=== PATIENT | male | born 1975 | race Caucasian/White ===

== ENCOUNTER 2016-11-12 02:55 | Emergency (ER) | payer OTHER ==
[~2016-11-12] VITALS: Ht 190.5 cm; Wt 145.0 kg
[~2016-11-12 02:55] MED LIST: HYDR-762 PO; IBUP-1542 PO; METH500T PO; OMEP20CA9 PO
[2016-11-12 03:05] VITALS: Ht 190.5 cm; Wt 145.0 kg
[2016-11-12] MEDS ORDERED: LISI10TA2 PO (04:26)
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
--- NOTE | 2016-11-12 04:43 | RADRPT ---
PROCEDURE: CT Lumbar Spine without contrast. CLINICAL INDICATION: Back pain. TECHNIQUE: The study was performed on a [employer] 64-slice VCT scanner. Contiguous axial images using 2.5 mm slice thickness were obtained without contrast. Sagittal and coronal reformati ons were created from the raw axial data. The images were reviewed on a PACS workstation. Exam CTD/vol = 38.48 mGy. Total exam DLP = 1008.35 mGy-cm. COMPARISON: None. FINDINGS: There is a mild compression deformity of the L1 vertebral body with up to 20% loss in vertebral body height. Lumbar vertebral alignment remains within normal limits. There are small marginal osteoph ytes at multiple levels. There are defects of bilateral pars interarticularis of L5. At T12-L1, there is mild loss of disk height and a mild diffuse disk osteophyte complex resulting in mild central canal stenosis. There is no neural foraminal stones. At L1-L2, there is mild loss of disk height and a mild diffuse disk osteophyte complex resulting in mild central canal stenosis. There is no neural foraminal stenosis. At L2-L3, there is mild loss of disk height and a mild diffuse disk osteophyte complex resulting in mild central canal stenosis. There is moderate bilateral neural foraminal stenosis. At L3-L4, the disk height is within normal limits. There is no central canal stenosis. There is mi ld bilateral neural foraminal stenosis. At L4-L5, the disk height is within normal limits. There is no central canal stenosis. There is mo derate bilateral neural foraminal stenosis. At L5-S1, the disk height is within normal limits. There is no central canal stenosis. There is mo derate bilateral neural foraminal stenosis. There is no paraspinal mass or collection. IMPRESSION: Mild compression deformity of L1, likely old. Bilateral pars defects of L5. Mild lumbar spondylosis. There is multilevel central canal and neural foraminal stenosis as describ ed. .Ahsan Landa MD, Date Time Electronically viewed and signed by .Ahsan Landa MD, MD on 11/12/2016 04:43 .T/
--- NOTE | 2016-11-12 04:57 | RADRPT ---
PROCEDURE: XR Chest. CLINICAL INDICATION: Cough. TECHNIQUE: AP Portable chest. COMPARISON: 10/02/2012 FINDINGS: The cardiomediastinal silhouette is normal. The lungs are clear. The osseous structures are unrema rkable. IMPRESSION: No acute findings. RPTAT: HIKT .Jason Coyle MD, MD Date Time Electronically viewed and signed by .Jason Coyle MD, MD on 11/12/2016 04:56 .T/
[2016-11-12] MEDS ORDERED: HYDR-906 PO (05:05)
[2016-11-12] MEDS ORDERED: GUAI120S26 PO (05:05)
[2016-11-12] MEDS ORDERED: ACET500C5 PO (05:05)
[2016-11-12] MEDS ORDERED: CYCL-319 PO (05:05)
[2016-11-12 05:20] VITALS: PULSE 96; RESP 20; TEMP 98.8
== END 2016-11-12 05:18 | disposition home or self-care (01) ==
LOC: FTE 02:55
DX: S39.92XA Unspecified injury of lower back, initial encounter (principal); J06.9 Acute upper respiratory infection, unspecified; I10 Essential (primary) hypertension; V28.4XXA Motorcycle driver injured in noncollision transport accident in traffic accident, initial encounter; Z72.0 Tobacco use
CPT/HCPCS: 71010; 72131; Z7502

== ENCOUNTER 2017-03-12 07:12 | Emergency (ER) | payer OTHER ==
[~2017-03-12] VITALS: Ht 188 cm; Wt 110.0 kg
[~2017-03-12 07:12] MED LIST changes: +ACET500C5 PO; +CYCL-319 PO; +GUAI120S26 PO; +HYDR-906 PO; +LISI10TA2 PO
[2017-03-12 07:34] VITALS: Ht 188 cm; Wt 110.0 kg
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
== END 2017-03-12 08:20 | disposition home or self-care (01) ==
LOC: E/R 07:12
DX: F51.01 Primary insomnia (principal); I10 Essential (primary) hypertension
CPT/HCPCS: 99283